=== PATIENT | female | born 1965 | race Asian ===

== ENCOUNTER 2022-11-15 05:23 | Day surgery (SDC) | payer OTHER, BC ==
[2022-11-14 08:37] VITALS: BMI 32.1
[2022-11-15] MEDS ORDERED: PROPOFOL 20 ML ONE (14:25)
[2022-11-15] MEDS ORDERED: LIDOCAINE HCL/PF 2% SDV 5ML VIAL ONE (14:25)
[2022-11-15] MEDS ORDERED: ceFAZolin SODIUM 1 GM VIAL ONE (14:25)
[2022-11-15] MEDS ORDERED: SODIUM CHLORIDE 0.9% P/F 10 ML VIAL IJ ONE ×2 (14:25→14:26)
[2022-11-15] MEDS ORDERED: GLYCOPYRROLATE 0.2 MG/1 ML VIAL ONE (14:25)
[2022-11-15] MEDS ORDERED: MIDAZOLAM HCL 2 MG/2 ML SINGLE DOSE VIAL ONE (14:25)
[2022-11-15] MEDS ORDERED: ONDANSETRON 4 MG/2 ML VIAL ONE (14:35)
[2022-11-15] MEDS ORDERED: DEXAMETHASONE SOD PHOSPHATE 4 MG/1 ML VIAL ONE (14:35)
[2022-11-15] MEDS ORDERED: ceFAZolin SODIUM 1 GM VIAL IVPB ONE (14:42)
[2022-11-15] MEDS ORDERED: KETOROLAC TROMETHAMINE 30 MG/1 ML VIAL ONE (14:43)
[2022-11-15] MEDS ORDERED: IOHEXOL 300 MG/ML INFUS..BTL IJ ONE (14:48)
[2022-11-15] MEDS ORDERED: ACETAMINOPHEN 1000 MG/100 ML BAG IVPB ONE (15:27)
[2022-11-15] MEDS ORDERED: oxyCODONE HCL 5 MG TABLET PO PRN (15:27)
[2022-11-15] MEDS ORDERED: ONDANSETRON 4 MG/2 ML VIAL IVPUSH PRN (15:27)
[2022-11-15] MEDS ORDERED: PROMETHAZINE HCL 25 MG/1 ML VIAL IVPB PRN (15:27)
[2022-11-15] MEDS ORDERED: LACTATED RINGERS SOLUTION 1,000 ML IV SCH (15:30)
[2022-11-15] MEDS ORDERED: ACETAMINOPHEN INJECTION 100 ML IVPB ONE (15:47)
[2022-11-15 16:55] VITALS: TEMP 98.1
[2022-11-15 17:43] VITALS: RESP 20
[2022-11-15 17:46] VITALS: BP 115/60; PULSE 74
== END 2022-11-15 17:37 | disposition home or self-care (01) ==
LOC: JASU-SURG 05:23
PROVIDERS: ATTEND Urology
PROC: 0TC18ZZ Extirpation of Matter from Left Kidney, Via Natural or Artificial Opening Endoscopic (ICD-10-PCS; principal; 2022-11-15 14:00)
PROC: 0T778DZ Dilation of Left Ureter with Intraluminal Device, Via Natural or Artificial Opening Endoscopic (ICD-10-PCS; 2022-11-15 14:00)
PROC: BT1FYZZ Fluoroscopy of Left Kidney, Ureter and Bladder using Other Contrast (ICD-10-PCS; 2022-11-15 14:00)
DX: N20.0 Calculus of kidney (principal)
CPT/HCPCS: 76000-TC-FY; 82962; 94760; C1747; C1758; C1769; C2617